=== PATIENT | female | born 1985 | race African-American/Black ===

== ENCOUNTER 2020-04-07 22:19 | Emergency (ER) | payer MEDICAID, OTHER ==
[2020-04-07] MEDS ORDERED: Acetaminophen/HYDROcodone 325-5 MG Tab PO ONE (22:41)
[2020-04-07] MEDS ORDERED: Cephalexin 500 MG Cap PO ONE (22:42)
--- NOTE | 2020-04-07 22:55 | EDM.PDOC ---
ED HPI GENERAL MEDICAL PROBLEM - General Chief Complaint: Skin Complaint Stated Complaint: ABCESS ON LEFT BREAST Time Seen by Provider: 04/07/20 22:35 Source of Information: Reports: Patient, RN Notes Reviewed History Limitations: Reports: No Limitations - History of Present Illness INITIAL COMMENTS - FREE TEXT/NARRATIVE: Patient is a 34-year-old female who presents to the ED for evaluation of an abscess under her left breast. She notes that this is been getting bigger for the past week, she has a history of getting skin boils and other lesions, so she has been monitoring this at home. She notes that today however the pain is gotten so intense that she cannot take it anymore. She states that it started draining after she got out of the shower today. This is kind of a purulent bloody tinged drainage. Patient notes she has been using for 100 mg ibuprofen every 6 hours, and this is not providing much pain relief. She is not had any fevers, chills, cough/shortness of breath, nausea/vomiting/diarrhea. This area is about grape size, under her medial breast tissue. 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 ED EXAM, SKIN/RASH Exam: See Below Exam Limited By: No Limitations General Appearance: Alert, WD/WN, No Apparent Distress Respiratory/Chest: No Respiratory Distress, Lungs Clear, Normal Breath Sounds, No Accessory Muscle Use, Chest Non-Tender Cardiovascular: Normal Peripheral Pulses, Regular Rate, Rhythm, No Murmur (Female) Exam: Other (Draining lesion to Left medial inferior breast) Extremities: Normal Inspection, Normal Capillary Refill Neurological: Alert, Oriented, Normal Cognition, No Motor/Sensory Deficits Psychiatric: Normal Affect, Normal Mood Skin: Warm, Dry, Normal Color, No Rash, Other (draining grape sized lesion to the left under breast, that is tender) Course - Vital Signs Last Recorded V/S: Last Vital Signs Temp 97.4 F 04/07/20 22:32 Pulse 69 04/07/20 22:32 Resp 17 04/07/20 22:32 BP 127/86 04/07/20 22:32 Pulse Ox 99 04/07/20 22:32 - Orders/Labs/Meds Meds: Medications Discontinued Medications Generic Name Dose Route Start Last Admin Trade Name Freq PRN Reason Stop Dose Admin Hydrocodone Bitart/Acetaminophen 1 tab 04/07/20 22:41 [place] 325-5 Mg PO 04/07/20 22:42 ONETIME ONE Cephalexin 500 mg 04/07/20 22:42 Keflex PO 04/07/20 22:43 ONETIME ONE - Re-Assessments/Exams Free Text/Narrative Re-Assessment/Exam: 04/07/20 22:56 Patient does appear to have a draining breast abscess on her left medial breast. She will be placed on 500 mg cephalexin QID x 10 days. She will also get a tablet of norco 5/325mg for pain management and discharged home. Departure - Departure Time of Disposition: 22:58 Disposition: Home, Self-Care 01 Condition: Good Clinical Impression: Breast abscess of female - Discharge Information *PRESCRIPTION DRUG MONITORING PROGRAM REVIEWED*: Yes *COPY OF PRESCRIPTION DRUG MONITORING REPORT IN PATIENT KASIA: No Prescriptions: cephALEXin [Cephalexin] 500 mg PO QID 10 Days #40 capsule Acetaminophen/HYDROcodone [[place] 325-5 MG] 1 tab PO Q6H PRN #15 tablet PRN Reason: Pain Instructions: Skin Abscess, [id number] Referrals: PCP,None [Primary Care Provider] - Additional Instructions: You were evaluated in the ER today regarding your breast abscess. You were given an antibiotic, cephalexin 500mg please take as prescribed until the course is done or told otherwise by different provider. Please note that this antibiotic will take at least 48 hours to start working appropriately. You may try to use heat/ice packs to the area to help reduce pain/swelling. You may take 500 mg Tylenol or 600 mg ibuprofen every 6 hours as needed for further pain relief. Do not exceed 4000 mg Tylenol or 3200 mg ibuprofen in a 24-hour time span. You were given a prescription for a strong pain medication, hydrocodone/acetaminophen 5/325 mg, please take 1 tab every 6 hours as needed for pain not relieved by Tylenol or ibuprofen alone. Please note this medication does contain Tylenol in it, so do not take more than 4000 mg in a 24- hour time span. These medications can be addictive, so please take as few as possible to achieve adequate pain control. These meds can also be quite constipating, recommend that you increase your oral fluid intake and take a stool softener like MiraLAX while taking these medications. Do not drive while taking this medication. Recommend you follow-up with a primary care provider of choice, our clinic number [phone], any family practice provider would be able to provide you with the services. Please return to the ER at any time if your symptoms change or worsen. Sepsis Event Note (ED) - Evaluation Sepsis Screening Result: No Definite Risk - Focused Exam Vital Signs: Vital Signs Temp Pulse Resp BP Pulse Ox 04/07/20 22:32 97.4 F 69 17 127/86 99
== END 2020-04-07 23:13 | disposition home or self-care (01) ==
LOC: JD.ED 22:19
DX: N61.1 Abscess of the breast and nipple (principal)
CPT/HCPCS: 99282; A9270; 99283

== ENCOUNTER 2021-04-10 10:52 | Emergency (ER) | payer MEDICAID ==
[2021-04-10] MEDS ORDERED: Lidocaine 1% 10 ML MDV INJECT ONE (11:32)
--- NOTE | 2021-04-10 11:37 | EDM.PDOC ---
ED HPI GENERAL MEDICAL PROBLEM - General Chief Complaint: Laceration Stated Complaint: FINGER LAC Time Seen by Provider: 04/10/21 11:19 Source of Information: Reports: Patient, RN Notes Reviewed History Limitations: Reports: No Limitations - History of Present Illness INITIAL COMMENTS - FREE TEXT/NARRATIVE: Patient is a 35-year-old female who presents to the ER for the evaluation of her finger/hand laceration. States she was washing dishes at home, did not realize there was a glass in the sink that must have been broke. She put her hand into the water and ended up lacerating the proximal portion of her index finger, over the lateral aspect of her second MCP. Bleeding is controlled at this time, the laceration is linear, and roughly 1 cm in length. She is up-to-date on her tetanus booster. Patient denies any other sick-like symptoms, fever/chills, cough/shortness of breath, nausea/vomiting/diarrhea. She still has full range of motion in her finger, and is not having any sort of numbness or tingling distal to the injury. Right Finger-Index Pain Score (Numeric/FACES): 10 - Related Data Allergies Allergy/AdvReac Type Severity Reaction Status Date / Time No Known Allergies Allergy Verified 04/10/21 11:10 Home Meds: Home Meds . 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 ED EXAM, SKIN/RASH Exam: See Below Exam Limited By: No Limitations General Appearance: Alert, WD/WN, No Apparent Distress Respiratory/Chest: No Respiratory Distress, Lungs Clear, Normal Breath Sounds, No Accessory Muscle Use, Chest Non-Tender Cardiovascular: Normal Peripheral Pulses, Regular Rate, Rhythm, No Edema Extremities: Normal Inspection, Normal Capillary Refill Neurological: Alert, Oriented, Normal Cognition, No Motor/Sensory Deficits Psychiatric: Normal Affect, Normal Mood Skin: Warm, Dry, Normal Color, No Rash, Wound/Incision (1cm linear laceration to proximal lateral R 2nd digit base) ED SKIN PROCEDURES - Laceration/Wound Repair Right Lateral Proximal Digit - 2nd (Index) Appearance: Superficial, Linear, Clean Distal NVT: Neuro & Vascular Intact, No Tendon Injury Anesthetic Type: Local Local Anesthesia - Lidocaine (Xylocaine): 1% Plain Local Anesthetic Volume: 2cc Skin Prep: Providone-Iodine (Betadine), Saline Exploration/Debridement/Repair: Wound Explored, In a Bloodless Field, Explored to Base, No Foreign Material Found Closed with: Sutures Lac/Wound length In cm: 1 Suture Size: 4-0 # of Sutures: 4 Suture Type: Prolene, Interrupted, Simple Sterile Dressing Applied: Nurse Tetanus Status Addressed: Yes Complications: No Course - Vital Signs Last Recorded V/S: Last Vital Signs Temp 97.6 F 04/10/21 11:08 Pulse 57 L 04/10/21 11:08 Resp 16 04/10/21 11:08 BP 118/79 04/10/21 11:08 Pulse Ox 99 04/10/21 11:08 - Orders/Labs/Meds Meds: Medications Discontinued Medications Generic Name Dose Route Start Last Admin Trade Name Milad PRN Reason Stop Dose Admin Lidocaine HCl 10 ml 04/10/21 11:32 Lidocaine 1% 10 Ml Mdv INJECT 04/10/21 11:33 ONETIME ONE Departure - Departure Time of Disposition: 11:36 Disposition: Home, Self-Care 01 Condition: Good Clinical Impression: Finger laceration Qualifiers: Encounter type: initial encounter Finger: index finger Damage to nail status: without damage Foreign body presence: without foreign body Laterality: right Qualified Code(s): S61.210A - Laceration without foreign body of right index finger without damage to nail, initial encounter - Discharge Information *PRESCRIPTION DRUG MONITORING PROGRAM REVIEWED*: No *COPY OF PRESCRIPTION DRUG MONITORING REPORT IN PATIENT KASIA: No Instructions: Sutures, Ian, or Adhesive Wound Closure, [id number] Referrals: PCP,None [Primary Care Provider] - Forms: ED Department Discharge Additional Instructions: You have been evaluated in the ED for your laceration. Sutures will need to stay in for about 10 days. You may return to the ED or any clinic for removal. Please keep this area clean and dry, you may cleanse with regular soap and wate r. No vigorous scrubbing. Please try to avoid submerging the affected area in water for prolonged periods of time until the sutures are removed. Watch out for signs of infection like increased redness, swelling, pain at the laceration site, or if you should develop any fevers or chills. Please return to ED if your symptoms change or worsen. Sepsis Event Note (ED) - Evaluation Sepsis Screening Result: No Definite Risk - Focused Exam Vital Signs: Vital Signs Temp Pulse Resp BP Pulse Ox 04/10/21 11:08 97.6 F 57 L 16 118/79 99
== END 2021-04-10 12:40 | disposition home or self-care (01) ==
LOC: JD.ED 10:52
DX: S61.210A Laceration without foreign body of right index finger without damage to nail, initial encounter (principal); W25.XXXA Contact with sharp glass, initial encounter; Y93.G1 Activity, food preparation and clean up; Y92.009 Unspecified place in unspecified non-institutional (private) residence as the place of occurrence of the external cause
CPT/HCPCS: 12001; 99282-25

== ENCOUNTER 2021-04-12 17:00 | Emergency (ER) | payer MEDICAID ==
[2021-04-12] MEDS ORDERED: HYDROmorphone 0.5 MG/0.5 ML Syringe IM ONE (17:45)
--- NOTE | 2021-04-12 17:55 | EDM.PDOC ---
ED HPI GENERAL MEDICAL PROBLEM - General Chief Complaint: General Stated Complaint: BREAST PAIN Time Seen by Provider: 04/12/21 17:27 Source of Information: Reports: Patient History Limitations: Reports: No Limitations - History of Present Illness INITIAL COMMENTS - FREE TEXT/NARRATIVE: 35-year-old female presents the emergency department with a painful mass noted under her left breast. Patient states this started about 2 weeks ago and she states it has been getting bigger and more painful. Patient does admit to having a history of abscesses and infection. She has had a draining abscess noted under this breast in the past. She also notes that she has had abscesses on her arms and in her armpits. She states she has been trying to take hot moist towels and apply them to the area however this is not helped. Areas noted along the left medial breast just along the area of the breast tissue and ribs. Areas about the size of a grape and is exquisitely tender. She denies any recent fever, chills, nausea, vomiting or diarrhea. She states she is otherwise healthy. She does vape, admits to occasional alcohol use and denies any recreational drug use. 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 ED EXAM, GENERAL - Physical Exam Exam: See Below Exam Limited By: No Limitations General Appearance: Alert, WD/WN, No Apparent Distress Ears: Normal External Exam, Hearing Grossly Normal Nose: Normal Inspection Throat/Mouth: Normal Inspection, Normal Lips, Normal Voice, No Airway Compromise Head: Atraumatic Neck: Normal Inspection, Supple Respiratory/Chest: No Respiratory Distress, No Accessory Muscle Use Cardiovascular: Normal Peripheral Pulses, Regular Rate, Rhythm GI/Abdominal: No Distention (Female) Exam: Deferred Rectal (Female) Exam: Deferred Back Exam: Normal Inspection Extremities: Normal Inspection Neurological: Alert, Oriented, Normal Cognition Psychiatric: Normal Affect, Normal Mood Skin Exam: Warm, Dry, Intact, Normal Color, No Rash, Other (Mass noted along the medial aspect of the left breast adjacent to the ribs.) Lymphatic: No Adenopathy Course - Vital Signs Text/Narrative:: As stated above, patient presents with a painful mass noted along the medial aspect of the left breast just adjacent to the ribs. Upon exam, the area is palpated and noted to be about the size of a grape however it is exquisitely painful. She denies any drainage from this area or from the nipple. Will medicate the patient with Dilaudid IM and obtain an ultrasound of the area. Last Recorded V/S: Last Vital Signs Temp 97.7 F 04/12/21 17:26 Pulse 63 04/12/21 17:26 Resp 20 04/12/21 17:26 BP 120/75 04/12/21 17:26 Pulse Ox 100 04/12/21 17:26 - Orders/Labs/Meds Meds: Medications Discontinued Medications Generic Name Dose Route Start Last Admin Trade Name Milad PRN Reason Stop Dose Admin Hydromorphone HCl 0.5 mg 04/12/21 17:45 04/12/21 17:52 Hydromorphone 0.5 Mg/0.5 Ml Syringe IM 04/12/21 17:46 0.5 mg ONETIME ONE Administration - Re-Assessments/Exams Free Text/Narrative Re-Assessment/Exam: 04/12/21 18:50 Radiologist impression left breast ultrasound.: 1. Abnormality at the 7 o'clock position suspicious for abscess with measurements as noted above. 1.3 cm x 1.8 cm x 0.9 cm. Recommended follow-up study after clinical therapy is completed to make sure findings resolved. Departure - Departure Time of Disposition: 18:51 Disposition: Home, Self-Care 01 Condition: Good Clinical Impression: Breast abscess of female - Discharge Information Prescriptions: Doxycycline [Vibra-Tabs] 100 mg PO BID #13 tablet Referrals: PCP,None [Primary Care Provider] - Forms: ED Department Discharge Additional Instructions: You were seen in the emergency department today with complaints of a mass noted just at the border of your left breast. Ultrasound was completed which stated the area suspicious for an abscess. Recommendations is antibiotic treatment and then once you have completed the course of antibiotics repeat ultrasound. While you are in the emergency department you were given an antibiotic called doxycycline. You will need to take this medication twice daily for a total of 7 days. I have sent a prescription to your pharmacy for the remaining doses. You will need to follow-up with your primary care provider once you have completed your course of antibiotics. Sepsis Event Note (ED) - Focused Exam Vital Signs: Vital Signs Temp Pulse Resp BP Pulse Ox 04/12/21 17:26 97.7 F 63 20 120/75 100
--- NOTE | 2021-04-12 18:38 | US ---
Left breast ultrasound: Multiple real-time images were obtained at the 7 o'clock position within the left breast. Comparison: No prior breast imaging is available. Findings: Hypoechoic area is seen within the left breast located at the 7 o'clock position 6 cm from the nipple. This findings is irregular in appearance and shows some internal echoes. This measures 1.3 x 1.8 x 0.9 cm and is most likely due to a small abscess. No additional abnormality is appreciated. Impression: 1. Abnormality at the 7 o'clock position suspicious for abscess with measurements as noted above. Recommend follow-up study after clinical therapy is complete to make sure findings resolve. Diagnostic code #3
[2021-04-12] MEDS ORDERED: Doxycycline 100 MG Cap PO ONE (18:51)
== END 2021-04-12 19:21 | disposition home or self-care (01) ==
LOC: JD.ED 17:00
DX: N61.1 Abscess of the breast and nipple (principal); Z72.0 Tobacco use
CPT/HCPCS: 76642; 96372; 99283; A9270; J1170

== ENCOUNTER 2021-09-17 19:56 | Emergency (ER) | payer MEDICAID ==
[2021-09-17] MEDS ORDERED: Ketorolac 30 MG/ML SDV IM ONE (20:26)
== END 2021-09-17 21:12 | disposition home or self-care (01) ==
LOC: JD.ED 19:56
DX: M25.512 Pain in left shoulder (principal); M54.12 Radiculopathy, cervical region; Z72.0 Tobacco use
CPT/HCPCS: 96372; 99283; J1885

== ENCOUNTER 2021-12-17 08:07 | Emergency (ER) | payer MEDICAID ==
[2021-12-17] MEDS ORDERED: Acetaminophen/HYDROcodone 325-5 MG Tab PO ONE (09:03)
[2021-12-17] MEDS ORDERED: Cyclobenzaprine 10 MG Tab PO ONE (09:03)
== END 2021-12-17 10:30 | disposition home or self-care (01) ==
LOC: JD.ED 08:07
DX: M50.223 Other cervical disc displacement at C6-C7 level (principal); Z86.16 Personal history of COVID-19
CPT/HCPCS: 72125; 99283; A9270

== ENCOUNTER 2022-02-03 12:52 | Emergency (ER) | payer MEDICAID | END 2022-02-03 13:30 | LOC: JD.ED 12:52 | DX: Z53.21 Procedure and treatment not carried out due to patient leaving prior to being seen by health care provider (principal) ==

== ENCOUNTER 2022-02-25 02:25 | Emergency (ER) | payer MEDICAID ==
[2022-02-25] MEDS ORDERED: HYDROmorphone 1 MG/ML Syringe IM ONE (03:23)
== END 2022-02-25 04:07 | disposition home or self-care (01) ==
LOC: JD.ED 02:25
DX: L73.2 Hidradenitis suppurativa (principal); F17.210 Nicotine dependence, cigarettes, uncomplicated
CPT/HCPCS: 96372; 99282; J1170

== ENCOUNTER 2023-06-07 17:10 | Emergency (ER) | payer MEDICAID ==
[2023-06-07] MEDS ORDERED: Ketorolac 60 MG/2 ML SDV IM ONE (19:02)
== END 2023-06-07 19:32 | disposition home or self-care (01) ==
LOC: JD.ED 17:10
DX: S00.83XA Contusion of other part of head, initial encounter (principal); S00.81XA Abrasion of other part of head, initial encounter; Y09 Assault by unspecified means
CPT/HCPCS: 70450; 70486; 72125; 96372; 99284; J1885; 99283

== ENCOUNTER 2023-11-06 08:50 | Emergency (ER) | payer MEDICAID ==
[2023-11-06] MEDS: Ketorolac 30 MG/ML SDV IVPUSH ONE (09:41)
[2023-11-06] MEDS: predniSONE 20 MG Tab PO ONE (09:42)
[2023-11-06 09:43] LABS: BASOPHILS PERCENT AUTO 0.1 % (0.0-1.0); EOSINOPHILS ABSOLUTE AUTO 0.1 K/mm3 (0.0-0.4); EOSINOPHILS PERCENT AUTO 1.1 % (0.0-6.0); HEMATOCRIT 37.6 % (37.0-47.0); HEMOGLOBIN 12.7 gm/dl (12.0-16.0); IMMATURE GRAN ABSOLUTE AUTO 0.05 K/mm3 (0.00-0.05); IMMATURE GRAN PERCENT AUTO 0.5 % (0.0-0.4); LYMPHOCYTES ABSOLUTE AUTO 1.7 K/mm3 (1.0-4.8); LYMPHOCYTES PERCENT AUTO 17.9 % (24.0-44.0); MEAN CORPUSCULAR HEMOGLOBIN 31.4 pg (28.0-32.0); MEAN CORPUSCULAR HGB CONC 33.8 g/dl (32.0-36.0); MEAN CORPUSCULAR VOLUME 92.8 fl (83.0-99.0); MEAN PLATELET VOLUME 9.6 fl (9.4-12.3); MONOCYTES ABSOLUTE AUTO 0.7 K/mm3 (0.0-0.8); MONOCYTES PERCENT AUTO 7.1 % (0.0-8.0); NEUTROPHILS PERCENT AUTO 73.3 % (41.0-71.0); PLATELET COUNT,PLT 337 K/mm3 (150-400); RED BLOOD CELL COUNT 4.05 M/mm3 (4.10-5.30); WHITE BLOOD CELL COUNT,WBC 9.61 K/mm3 (3.9-11.3)
[2023-11-06] MEDS: Lidocaine 1% 10 ML MDV INJECT ONE (10:15)
[2023-11-06] MEDS: cefTRIAXone 1 GM in Sodium Chloride 0.9% 100 ML IV ONE (10:16)
== END 2023-11-06 12:28 | disposition home or self-care (01) ==
LOC: JD.ED 08:50
DX: L73.2 Hidradenitis suppurativa (principal); Z79.899 Other long term (current) drug therapy; Z86.16 Personal history of COVID-19
CPT/HCPCS: 10060; 36415; 85025; 87070; 87075; 87205; 96365; 96375; 99283; J0696; J1885; J3490; J7512

== ENCOUNTER 2024-01-13 22:22 | Emergency (ER) | payer MEDICAID ==
[2024-01-14] MEDS: Diphtheria,Pertussis(Acell),Tetanus Vaccine 0.5 ML Syringe IM ONE (00:21)
[2024-01-14] MEDS: Amoxicillin/Clavulanate K 875-125 MG Tab PO ONE (00:21)
[2024-01-14] MEDS: Acetaminophen 325 MG Tab PO ONE (01:28)
== END 2024-01-14 01:39 | disposition home or self-care (01) ==
LOC: JD.ED 22:22
DX: O9A.211 Injury, poisoning and certain other consequences of external causes complicating pregnancy, first trimester (principal); S91.332A Puncture wound without foreign body, left foot, initial encounter; S71.032A Puncture wound without foreign body, left hip, initial encounter; S71.132A Puncture wound without foreign body, left thigh, initial encounter; Z3A.13 13 weeks gestation of pregnancy; Z23 Encounter for immunization; Z86.16 Personal history of COVID-19; W45.0XXA Nail entering through skin, initial encounter
CPT/HCPCS: 73620; 90471; 90715; 99283; A9270

== ENCOUNTER 2024-03-17 08:36 | Emergency (ER) | payer MEDICAID | END 2024-03-17 09:27 | disposition home or self-care (01) | LOC: JD.ED 08:36 | DX: O99.612 Diseases of the digestive system complicating pregnancy, second trimester (principal); O99.332 Smoking (tobacco) complicating pregnancy, second trimester; K62.89 Other specified diseases of anus and rectum; F17.210 Nicotine dependence, cigarettes, uncomplicated; Z3A.22 22 weeks gestation of pregnancy; Z86.16 Personal history of COVID-19 | CPT/HCPCS: 82272; 99283 ==

== ENCOUNTER 2024-07-01 06:55 | Inpatient (IN) | payer MEDICAID ==
[~2024-07-01 06:55] MED LIST: Lidocaine 1% 10 ML MDV ONE
[2024-07-01] MEDS ORDERED: Sodium Chloride 0.9% 10 ML Syringe FLUSH PRN (07:19)
[2024-07-01] MEDS ORDERED: Lidocaine 1% 50 ML MDV INJECT PRN (07:19)
[2024-07-01] MEDS ORDERED: Ondansetron 4 MG/2 ML SDV IVPUSH PRN (07:19)
[2024-07-01] MEDS ORDERED: Oxytocin/0.9 % Sodium Chloride 30 UNIT/500 ML BAG IV SCH (07:30)
[2024-07-01] MEDS: Ampicillin 2 GM in Sodium Chloride 0.9% 100 ML IV ONE (07:52)
[2024-07-01] MEDS: Lactated Ringers 1,000 ML IV SCH (07:52)
[2024-07-01 08:02] LABS: BASOPHILS PERCENT AUTO 0.3 % (0.0-1.0); EOSINOPHILS ABSOLUTE AUTO 0.1 K/mm3 (0.0-0.4); EOSINOPHILS PERCENT AUTO 1.4 % (0.0-6.0); HEMATOCRIT 35.2 % (37.0-47.0); HEMOGLOBIN 11.7 gm/dl (12.0-16.0); IMMATURE GRAN PERCENT AUTO 1.3 % (0.0-0.4); LYMPHOCYTES ABSOLUTE AUTO 2.6 K/mm3 (1.0-4.8); LYMPHOCYTES PERCENT AUTO 32.9 % (24.0-44.0); MEAN CORPUSCULAR HEMOGLOBIN 30.9 pg (28.0-32.0); MEAN CORPUSCULAR HGB CONC 33.2 g/dl (32.0-36.0); MEAN CORPUSCULAR VOLUME 92.9 fl (83.0-99.0); MEAN PLATELET VOLUME 10.8 fl (9.4-12.3); MONOCYTES ABSOLUTE AUTO 0.6 K/mm3 (0.0-0.8); MONOCYTES PERCENT AUTO 7.8 % (0.0-8.0); NEUTROPHILS ABSOLUTE AUTO 4.4 K/mm3 (1.8-7.7); NEUTROPHILS PERCENT AUTO 56.3 % (41.0-71.0); PLATELET COUNT,PLT 272 K/mm3 (150-400); RED BLOOD CELL COUNT 3.79 M/mm3 (4.10-5.30); WHITE BLOOD CELL COUNT,WBC 7.78 K/mm3 (3.9-11.3)
[2024-07-01] MEDS ORDERED: Sodium Chloride 0.9% 10 ML Syringe FLUSH SCH (09:00)
[2024-07-01] MEDS: Ampicillin 1 GM in Sodium Chloride 0.9% 100 ML IV SCH (11:42)
[2024-07-01] MEDS: Oxytocin/0.9 % Sodium Chloride 30 UNIT/500 ML BAG IV SCH (12:02)
[2024-07-01] MEDS: Nalbuphine 10 MG/1 ML Vial IVPUSH PRN (12:40)
[2024-07-01] MEDS ORDERED: ePHEDrine 50 MG/ML SDV IVPUSH PRN (13:10)
[2024-07-01] MEDS ORDERED: diphenhydrAMINE 50 MG/ML SDV IVPUSH PRN (13:10)
[2024-07-01] MEDS: Bupivacaine/fentaNYL/NS 100 ML Bag EPIDUR PRN (13:22)
[2024-07-01] MEDS: fentaNYL 100 MCG/2 ML SDV EPIDUR PRN (13:23)
[2024-07-01] MEDS: Ketorolac 30 MG/ML SDV IVPUSH ONE (14:59)
[2024-07-01] MEDS ORDERED: Acetaminophen 325 MG Tab PO PRN (15:57)
[2024-07-01] MEDS ORDERED: Docusate Sodium 100 MG Cap PO PRN (15:57)
[2024-07-01] MEDS: Benzocaine/Menthol 20%-0.5% Spray 78 GM Cannister TOP PRN (16:51)
[2024-07-01] MEDS: Witch Hazel Medicated Pads 40/Jar TOP PRN (16:51)
[2024-07-01] MEDS: Ibuprofen 600 MG Tab PO SCH (21:01)
== END 2024-07-02 23:55 | disposition home or self-care (01) | DRG 807 ==
LOC: JD.OBCHECK 06:55 → JD.OB 06:59 → JD.OBCHECK 07:01 → JD.OB 07:01 → OBSVTOIN 14:30 → JD.OB 14:30
PROVIDERS: ADMIT Obstetrics & Gynecology; ATTEND Obstetrics & Gynecology
PROC: 10E0XZZ Delivery of Products of Conception, External Approach (ICD-10-PCS; principal; 2024-07-01)
DX: O42.02 Full-term premature rupture of membranes, onset of labor within 24 hours of rupture (principal); Z37.0 Single live birth; O99.824 Streptococcus B carrier state complicating childbirth; O69.81X0 Labor and delivery complicated by cord around neck, without compression, not applicable or unspecified; Z3A.37 37 weeks gestation of pregnancy
CPT/HCPCS: 36415; 59025; 59409; 85025; 85461; 86592; 86850; 86900; 86901; A9270-GY; J0290; J1885; J2300; J2791; J3010; J3490; J7120; J7999

== ENCOUNTER 2025-05-20 19:23 | Emergency (ER) | payer MEDICAID ==
[2025-05-20] MEDS: cefTRIAXone 1 GM, Lidocaine 1% 2.1 ML IM STA (20:00)
[2025-05-20] MEDS: Lidocaine 1% with EPINEPHrine 1:100,000 20 ML MDV INJECT ONE (20:00)
== END 2025-05-20 20:13 | disposition home or self-care (01) ==
LOC: JD.ED 19:23
DX: N61.1 Abscess of the breast and nipple (principal); L73.2 Hidradenitis suppurativa; Z79.899 Other long term (current) drug therapy
CPT/HCPCS: 10060; 87070; 87075; 87205; 96372; 99283; A9270; J0696; J2003; J2004; 10061; 99284